=== PATIENT | male | born 1960 | race Caucasian/White ===

== ENCOUNTER 2020-02-12 06:50 | Day surgery (SDC) | payer OTHER ==
[~2020-02-12] VITALS: Ht 170.2 cm; Wt 86.1 kg
[~2020-02-12 06:50] MED LIST: ALLERCLEAR10 MG PO; LANS15EC PO; Lovastatin20 MG PO; TYLENOL SINUS1 EAC3
== END 2020-02-12 09:00 | disposition home or self-care (01) ==
LOC: ORSCSDS 06:50
PROVIDERS: Ophthalmology
PROC: 08RJ3JZ Replacement of Right Lens with Synthetic Substitute, Percutaneous Approach (ICD-10-PCS; principal; 2020-02-12 08:00)
DX: H25.11 Age-related nuclear cataract, right eye (principal); H26.8 Other specified cataract; H52.4 Presbyopia; E78.5 Hyperlipidemia, unspecified; K21.9 Gastro-esophageal reflux disease without esophagitis
CPT/HCPCS: J2001; J2250; J3010; J3301; J7040; V2632

== ENCOUNTER 2021-07-13 08:31 | Day surgery (SDC) | payer BC ==
[~2021-07-13] VITALS: Ht 170.2 cm; Wt 84.8 kg
[~2021-07-13 08:31] MED LIST changes: +AZELASTINE137 MCG/01 INH; +Ventolin/Prove6.7 GM INH
--- NOTE | 2021-07-13 09:58 | NUR ---
07/13/21 0958 Juanita Burgess History, Chart, Medications and Allergies reviewed before start of procedure. Patient confirms NPO status and agrees with scheduled surgery. 3-LEAD EKG REVIEWED WITH PHYSICIAN PRIOR TO START OF PROCEDURE. MONITOR INTACT WITH CONTINUOUS PULSE OXIMETRY AND INTERMITTENT BP. PATIENT DETERMINED TO BE ASA APPROPRIATE FOR PROPOFOL SEDATION PRIOR TO START OF PROCEDURE BY DR. SCOTT
--- NOTE | 2021-07-13 10:09 | NUR ---
Ambulatory in Day Surgery History, Chart, Medications and Allergies reviewed before start of procedure. Lungs clear T/O to Auscultation. Patient confirms NPO status and agrees with scheduled surgery. Pre-Op teaching done. Pt verbalizes understanding. Patient States Post-Procedure ride home has been arranged.
--- NOTE | 2021-07-13 11:23 | NUR ---
Discharge instructions reviewed with patient. Patient verbalizes understanding. Copy given to patient to take home. Discharged via wheelchair to private car for ride home.
== END 2021-07-13 11:28 | disposition home or self-care (01) ==
LOC: ORSCMMR 08:31 → ORD 10:00 → ORSCMMR 10:00
PROVIDERS: Internal Medicine Gastroenterology
PROC: 0DBH8ZX Excision of Cecum, Via Natural or Artificial Opening Endoscopic, Diagnostic (ICD-10-PCS; principal; 2021-07-13 10:00)
PROC: 0DBM8ZX Excision of Descending Colon, Via Natural or Artificial Opening Endoscopic, Diagnostic (ICD-10-PCS; principal; 2021-07-13 10:00)
PROC: 0DB48ZX Excision of Esophagogastric Junction, Via Natural or Artificial Opening Endoscopic, Diagnostic (ICD-10-PCS; principal; 2021-07-13 10:00)
PROC: 0DB78ZX Excision of Stomach, Pylorus, Via Natural or Artificial Opening Endoscopic, Diagnostic (ICD-10-PCS; principal; 2021-07-13 10:00)
DX: Z12.11 Encounter for screening for malignant neoplasm of colon (principal); K21.00 Gastro-esophageal reflux disease with esophagitis, without bleeding; K29.70 Gastritis, unspecified, without bleeding; D12.0 Benign neoplasm of cecum; D12.4 Benign neoplasm of descending colon; K44.9 Diaphragmatic hernia without obstruction or gangrene; J45.909 Unspecified asthma, uncomplicated; E78.00 Pure hypercholesterolemia, unspecified; Z79.51 Long term (current) use of inhaled steroids; Z79.899 Other long term (current) drug therapy
CPT/HCPCS: 88305; 88342; A9270; J2704; J7120